=== PATIENT | female | born 1975 | race Caucasian/White ===

== ENCOUNTER 2025-09-22 21:43 | Emergency (ER) | payer OTHER, SELFPAY ==
[2025-09-22 21:52] VITALS: BP 146/77; PULSE 79; TEMP 36.7; O2SAT 97; BMI 19.2
--- OUTSIDE RECORDS SUMMARY | 2025-09-22 21:52 | XMS_ITS | Patient Health Record ---
Author Organization [facility] in [place] Address [address] [place] [address] Care Team Providers Care Food Safety Director Name Role Phone Spring Bustamante Primary Care Provider [phone] Allergies Allergen (clinical drug ingredient) Drug/Non Drug Allergy documented on EMR Reaction Allergy Type Onset Date Status codeine Codeine throat swelling Drug Allergy Active Reason For Referral No Information Medications Medication SIG (Take, Route, Frequency, Duration) Notes Start Date End Date Status Stiolto Respimat 2.5-2.5 MCG/ACT 2 puffs Inhalat ion Once a day ActiveSuboxone 8-2 MG1 film under the tongue and allow to dissolve Sublingual Once a dayNot-TakingNabumetone 500 MG1 tablet Orally BID prn; Duration: 14 days 5ActivelevoFLOXacin 500 MG1 tablet Orally Once a day; Duration: 10 day(s)09/15/2023ctiveAlbuterol Sulfate HFA 108 (90 Base) MCG/ACT2 puff as needed Inhalation every 4 hours prn; Duration: 30 daysPRNActivepredniSONE 20 MG3 tablets Orally Once a day; Duration: 5 days09/15/2023ctive Social History Tobacco Use: Social History Observation Description Date Details (start date - stop date) Current Smoker NA - NA Tobacco Use/Smoking Question Answer Notes Patient is a current smoker How often do you smoke cigarettes?every dayHow many cigarettes a day do you smoke?6-10How soon after you wake up do you smoke your first cigarette?within 5 minutesAre you interested in quitting?Thinking about quittingAlcohol Screen (Audit-C) Question Answer Notes Did you have a drink containing alcohol in the p ast year? No Oujxsx4HafgjvdpffxzbnGjajgstsJUGYL-O (Standard) Question Answer Notes Did you have a drink containing alcohol in the p ast year? No Dfcpek9KvxjubvvcafigsQvfzbymw Problems Problem Type SNOMED Code ICD Code Onset Dates Problem Status W/U Status Risk Notes Problem Chronic obstructive pulmonary disease (53542818) Chronic obstructive pulmonary disease, unspecified (J44.9) ActiveconfirmedProblemPleurisy (765851935)Pleurisy (R09.1)ActiveconfirmedProblem Pneumonia (716284847)Pneumonia (J18.9)ActiveconfirmedProblemAcute sinusitis (20194233)Acute sinusitis (J01.90)ActiveconfirmedProblemFever (770771312)Fever (R50.9)ActiveconfirmedProblemCellulitis (353537122)Cellulitis (L03.90)Active confirmedProblemDental abscess (disorder) (735486527)Abscessed tooth (K04.7) ActiveconfirmedProblemCurrent smoker (70310077)Current smoker (F17.200)Active confirmedProblemNausea and vomiting (13207518)Nausea & vomiting (R11.2)Active confirmedProblemRight upper quadrant pain (807425726)RUQ pain (R10.11)Active confirmedProblemHistory of substance abuse (Z87.898)ActiveconfirmedProblemFever, recurrent (A68.9)ActiveconfirmedProblemCough (finding) (60541212)Cough, unspecified (R05.9)ActiveconfirmedProblemAdjustment disorder with depressed mood (00176268)Unresolved grief (F43.21)Activeconfirmed Vital Signs Heart Rate 88 /min 03/10/2025 Wljmwgdf85 %03/10/2025lood pressure hangsollg70 mm Hg03/10/20250254Ervzgz66 in 03/10/2025lood pressure oacskhom976 mm Hg03/10/20250852Agyotx201.0 lbs03/10/2025MI 19.22 kg/m203/10/2025 Encounters Encounter Location Date Provider Diagnosis [facility] [address] [place] [address] 03/10/2025 Spring Bustamante Pleurisy R09.1 and Pneumonia J18.9 Assessments Encounter Date Diagnosis (ICD Code) Assessment Notes Treatment Notes Treatment Clinical Notes Section Notes 03/10/2025 Pleurisy (ICD-10 - R09.1) continue monitor advise stop smoking 03/10/2025Pneumonia (ICD-10 - J18.9)if not improving , fu Plan Of Treatment Pending Test Test Name Order Date CT Chest w/contrast * 07/17/2023 XR CHEST 2 V 03/22/2023 Insurance Providers Payer Name Payer Address Payer Phone Subscriber Number Group Number Insured Name Patient Relationship to Insured Coverage Start Date Coverage End Date [employer] [place] [employer] [address] [address] [place] [phone] [id number] Nathan Todd - patient is the insuredWALIN MARKETPLACEPO [address] [address] [place] [id number], TracySelf - patient is the insured Medications Administered Medication Instructions Date of Administration Dosage Notes Dexamethasone, 4mg/mL jf8Wamzdrbkm Rpbyvsmiyuay03/20/948724 mg60 Medical (General) History Medical History History ICD Code Pleurisy R09.1 Pneumonia J18.9 RUQ pain R10.11 Nausea & vomiting R11.2 Unresolved grief F43.21 Cellulitis L03.90 Cough, unspecified R05.9 Fever R50.9 Acute sinusitis J01.90 Fever, recurrent A68.9 Current smoker F17.200 Abscessed tooth K04.7 History of substance abuse Z87.898 Surgical History Surgery Date(Month/Year) none
--- OUTSIDE RECORDS SUMMARY | 2025-09-22 21:52 | XMS_ITS | Clinical Summary ---
Author Organization [facility] Address [address] [place] [address] Care Team Providers Care Licensed Sales Producer Name Role Phone Unavailable Primary Care Provider Unavailabl e Social History Tobacco UseTypesPacks/DayYears UsedDateSmoking Tobacco: Never Assessed CommentsUnknownSex and Gender InformationValueDate RecordedSex Assigned at Not on fileLegal LclGyehns89/15/2023 7:11 PM EDTGender IdentityNot on fileSexual OrientationNot on file Plan of Treatment Not on file
[2025-09-22] MEDS: TETRACAINE HCL 0.5% OP SOL 80 DROP/4 ML BOTTLE OP (22:19)
[2025-09-22] MEDS: FLUORESCEIN SODIUM 1 MG STRIP OP (22:22)
[2025-09-22] MEDS: MOXIFLOXACIN HCL 0.5% OP 60 DROP/3 ML BOTTLE OP (23:07)
--- NOTE | 2025-09-22 23:12 | PC.NURSE ---
i gave this patient verbal and written discharge orders along with 1 work note and medication to go home, this patient voices yes to understanding these . at time of discharge this patient voices no concerns, needs and shows no signs of distress
--- NOTE | 2025-09-23 00:46 | ED_ITS ---
HPI HPI - General Adult General Chief complaint: Eye Problems Stated complaint: Eye Discharge Time Seen by Provider: 09/22/25 21:59 Source: patient Mode of arrival: walk-in History of Present Illness HPI narrative: Patient is a 50-year-old female presenting to the emergency department for evaluation of a painful left eye. Patient states that 1 week ago she scratched her left eye and felt immediate pain. Since then, she has had worsening pain and redness in the left eye. She states this has happened multiple times in the past and was treated for scratched cornea . Patient states that bright lights bother her and her vision is somewhat blurred. She denies any flashes/floaters. She does wear eye contacts, and has been unable to remove the contacts because of the pain. She denies any other systemic symptoms such as fevers, chills, headache, nausea, vomiting, chest pain, shortness of breath. She denies any issues with the right eye. Related Data Allergies Allergy/AdvReac Type Severity Reaction Status Date / Time bupropion (From Wellbutrin) Allergy Intermediate Agitated Verified 09/22/25 21:52 codeine Allergy Mild Rash Verified 09/22/25 21:52 Opioid HPI Opioid Management Most Recent Opioid Data: Last Pain Scale 10 09/22/25, 22:00 Review of Systems ROS Status of ROS 10 or more systems reviewed and unremark able except as noted in history and below PFSH PFSH Social History Little interest or pleasure in doing things: not at all Feeling down, depressed, or hopeless: not at all Exam Narrative Exam Narrative: CONSTITUTIONAL: Patient is sitting in a darkly lit room, appears uncomfortable and holding her left eye, she is answering questions and following commands appropriately SKIN: Was warm and dry. EYES: The right eye is within normal limits. Patient still has a contact in her left eye. Upon removal of the contact, the left eye has significant scleral injection throughout. There is a corneal defect seen at the 9 o'clock position at the border of the iris/sclera on fluorescein stain/Park lamp. Negative Jerry sign. PERRLA. EOMI. Positive photophobia. Patient does not have a contact in, but has decreased visual acuity in the left compared to the right. Even without contacts visual franco are intact and is able to count my fingers from 10 feet away. Intraocular pressure 10 mmHg on the left. No ptosis. No periorbital edema. No foreign bodies in the eye or eyelids. No hyphema or hypopyon. Visual franco intact. EARS, NOSE, THROAT: Moist oral mucosa. RESPIRATORY: Nonlabored respirations. CARDIOVASCULAR: Normal rate and regular rhythm. There is no S3, S4, murmur, rub. GASTROINTESTINAL: Abdomen is nondistended. MUSCULOSKELETAL: No peripheral edema. NEUROLOGIC: Patient is awake and alert. Facies were symmetrical. Constitutional Vital Signs, click to edit/add: Last Vital Signs Temp 98.0 F 09/22/25 21:52 Pulse 79 09/22/25 21:52 Resp 18 09/22/25 21:52 BP 146/77 H 09/22/25 21:52 Pulse Ox 97 09/22/25 21:52 O2 Del Method Room Air 09/22/25 21:52 Course Vital Signs Vital signs: Vital Signs Temperature 98.0 F 09/22/25 21:52 Pulse Rate 79 09/22/25 21:52 Respiratory Rate 18 09/22/25 21:52 Blood Pressure 146/77 H 09/22/25 21:52 Pulse Oximetry 97 09/22/25 21:52 Oxygen Delivery Method Room Air 09/22/25 21:52 Temperature 98.0 F 09/22/25 21:52 Pulse Rate 79 09/22/25 21:52 Respiratory Rate 18 09/22/25 21:52 Blood Pressure 146/77 H 09/22/25 21:52 Pulse Oximetry 97 09/22/25 21:52 Oxygen Delivery Method Room Air 09/22/25 21:[address] [facility] Narrative Medical decision making narrative: Patient is a 50-year-old female presenting to the emergency department for evaluation of left eye redness/pain for the last 1 week after sustaining a scratch to the surface of her eye. Her vital signs on arrival are within normal limits. She is afebrile and hemodynamically stable. Examination as noted above. My clinical impression is that the patient's presentation is secondary to corneal abrasion, and possibly associated iritis. Her symptoms began directly after scratching her eye, and she did have immediate relief with tetracaine drops. There is no Sidel sign on fluorescein stain suggest globe rupture. Her intraocular pressure is normal, low concern for glaucoma. The pain was not delayed and is not visible on white light exam, lower concern for corneal ulcer. I do believe the patient is stable for discharge. I instilled moxifloxacin eyedrops while in the ED, and gave the patient the bottle to go home with. She was instructed to use moxifloxacin every 4 hours for a week. She was given information for the ophthalmology clinic, and instructed to follow-up as soon as possible. Return precautions were given for any new or concerning symptoms. Patient understands and agrees the plan. FINAL IMPRESSION: #Acute left corneal abrasion DISPOSITION: Discharged home CONDITION: Fair Discharge Plan Discharge Chief Complaint: Eye Problems Clinical Impression: Corneal abrasion Patient Disposition: Home, Self-Care Time of Disposition Decision: 22:42 Condition: Fair Mode of Transportation: Private Vehicle Print Language: Mexican Instructions: Corneal Abrasion (ED) Referrals: [facility] [Other, Opthalmology] - As soon as possible Clinical Impression: Corneal abrasion RAHEEL GALLO [Primary Care Provider, Family Practice] - 1 week Discharge Date/Time: 09/22/25 23:12
== END 2025-09-22 23:12 | disposition home or self-care (01) ==
PROVIDERS: Emergency Provider Student in an Organized Health Care Education/Training Program; PCP Nurse Practitioner Family
DX: S05.02XA Injury of conjunctiva and corneal abrasion without foreign body, left eye, initial encounter (principal); X58.XXXA Exposure to other specified factors, initial encounter
CPT/HCPCS: 99284